=== PATIENT | female | born 1950 | race Caucasian/White ===

== ENCOUNTER 2019-10-26 17:06 | Inpatient (IN) | payer MEDICARE, OTHER ==
[~2019-10-26] VITALS: Ht 152.4 cm; Wt 48.6 kg
[2019-10-26] MEDS ORDERED: VALIUM5 MG PO (17:23)
[2019-10-26] MEDS ORDERED: ROBAXIN 750 MG750 MG PO (17:25)
[2019-10-26] MEDS ORDERED: TORADOL 10 MG T10 MG PO (17:25)
[2019-10-26] MEDS ORDERED: ROXICODONE5 M2 PO (17:26)
[2019-10-26] MEDS ORDERED: SENOKOT-S1 TA2 PO (17:28)
[2019-10-26] MEDS ORDERED: TYLENOL EXTRA500 MG PO (17:30)
[2019-10-26] MEDS ORDERED: FOSAMAX 70 MG T70 MG PO (17:33)
[2019-10-26] MEDS ORDERED: TYLENOL/CODEINE #3 PO (17:33)
[2019-10-26] MEDS ORDERED: AMITRIPTYLINE H25 M2 PO (17:34)
[2019-10-26] MEDS ORDERED: BACLOFEN20 MG PO (17:35)
[2019-10-26] MEDS ORDERED: [UNRECOGNIZED DRUG - OTHER] PO (17:37)
[2019-10-26] MEDS ORDERED: OSCAL PO (17:37)
[2019-10-26] MEDS ORDERED: CYANOCOBAL1000 MCG/1 IM (17:39)
[2019-10-26] MEDS ORDERED: NOLVADEX20 MG PO (17:40)
[2019-10-26] MEDS ORDERED: [UNRECOGNIZED DRUG - OTHER] PO (17:41)
[2019-10-26] MEDS ORDERED: HERBAL MEDS (17:42)
[2019-10-26] MEDS ORDERED: ONDANSETRON HCL4 M2 PO (18:08)
[2019-10-26 20:00] VITALS: BP 135/68
[2019-10-27 04:49] LABS: HEMATOCRIT 29.3 % (37.0-47.0); HEMOGLOBIN 10.3 gm/dL (12.0-15.0); MCH 33.3 pg (26.0-34.0); MCHC 34.9 g/dL (28.0-37.0); MCV 95.4 fL (80.0-100.0); MPV 7.2 fl. (7.2-11.1); RBC 3.07 mil/uL (4.20-5.00); RDW-CV 12.4 % (10.5-14.5)
[2019-10-27 05:07] LABS: CALCIUM 7.8 mg/dL (8.5-10.1); CREATININE 0.7 mg/dL (0.6-1.3); POTASSIUM 3.7 mmol/L (3.5-5.1)
[2019-10-27 07:00] VITALS: BP 136/59
[2019-10-27 20:00] VITALS: BP 139/69
[2019-10-28 07:56] VITALS: BP 133/69
[2019-10-28 20:22] VITALS: BP 132/69
[2019-10-29 08:00] VITALS: BP 112/61; BP 141/66
[2019-10-29 09:32] LABS: HEMATOCRIT 38.2 % (37.0-47.0); MCH 32.7 pg (26.0-34.0); MCHC 33.2 g/dL (28.0-37.0); MCV 98.5 fL (80.0-100.0); MPV 7.1 fl. (7.2-11.1); RBC 3.88 mil/uL (4.20-5.00); RDW-CV 12.7 % (10.5-14.5); WBC 5.6 thou/uL (4.0-11.0)
[2019-10-29 09:34] LABS: HEMOGLOBIN 12.7 gm/dL (12.0-15.0)
[2019-10-29 13:59] LABS: ALBUMIN 2.4 g/dL (3.4-5.0); CALCIUM 8.4 mg/dL (8.5-10.1); CREATININE 0.5 mg/dL (0.6-1.3); MAGNESIUM 1.8 mg/dL (1.8-2.4); POTASSIUM 4.3 mmol/L (3.5-5.1); TOTAL BILIRUBIN 0.2 mg/dL (<0.1-1.0); TOTAL PROTEIN 5.8 g/dL (6.4-8.2)
[2019-10-29 20:00] VITALS: BP 133/69
[2019-10-30 05:07] LABS: HEMATOCRIT 31.2 % (37.0-47.0); MCH 32.7 pg (26.0-34.0); MCHC 34.1 g/dL (28.0-37.0); MCV 96.1 fL (80.0-100.0); MPV 6.8 fl. (7.2-11.1); RBC 3.25 mil/uL (4.20-5.00); RDW-CV 12.7 % (10.5-14.5); WBC 4.8 thou/uL (4.0-11.0)
[2019-10-30 05:36] LABS: HEMOGLOBIN 10.6 gm/dL (12.0-15.0)
[2019-10-30 05:41] LABS: ALBUMIN 2.4 g/dL (3.4-5.0); CALCIUM 8.5 mg/dL (8.5-10.1); CREATININE 0.6 mg/dL (0.6-1.3); MAGNESIUM 1.8 mg/dL (1.8-2.4); POTASSIUM 4.2 mmol/L (3.5-5.1); TOTAL BILIRUBIN 0.3 mg/dL (<0.1-1.0); TOTAL PROTEIN 5.5 g/dL (6.4-8.2)
[2019-10-30 20:00] VITALS: BP 125/69
[2019-10-31 08:00] VITALS: BP 132/45
[2019-10-31 20:00] VITALS: BP 157/75
[2019-11-01 03:47] LABS: HEMATOCRIT 34.2 % (37.0-47.0); HEMOGLOBIN 11.7 gm/dL (12.0-15.0); MCH 33.2 pg (26.0-34.0); MCHC 34.3 g/dL (28.0-37.0); MCV 96.9 fL (80.0-100.0); MPV 6.6 fl. (7.2-11.1); RBC 3.53 mil/uL (4.20-5.00); RDW-CV 12.7 % (10.5-14.5); WBC 4.1 thou/uL (4.0-11.0)
[2019-11-01 04:17] LABS: ALBUMIN 2.6 g/dL (3.4-5.0); CALCIUM 8.4 mg/dL (8.5-10.1); CREATININE 0.8 mg/dL (0.6-1.3); MAGNESIUM 1.8 mg/dL (1.8-2.4); TOTAL BILIRUBIN 0.3 mg/dL (<0.1-1.0); TOTAL PROTEIN 5.7 g/dL (6.4-8.2)
[2019-11-01 08:00] VITALS: BP 126/63
[2019-11-01 20:00] VITALS: BP 141/69
[2019-11-02 08:00] VITALS: BP 118/57
[2019-11-02 12:59] VITALS: BP 141/69
[2019-11-02 13:01] VITALS: BP 141/69
[2019-11-02 13:08] VITALS: BP 141/69
[2019-11-02 13:14] VITALS: BP 141/69
[2019-11-02 13:16] VITALS: BP 141/69
== END 2019-11-02 14:00 | disposition home health service (06) | DRG 57 ==
LOC: M.REH 17:06
PROVIDERS: Family Medicine; ADMIT Physical Medicine & Rehabilitation; ATTEND Physical Medicine & Rehabilitation
DX: G81.94 Hemiplegia, unspecified affecting left nondominant side (principal); G35 Multiple sclerosis; G96.19 Other disorders of meninges, not elsewhere classified; D64.9 Anemia, unspecified; K21.9 Gastro-esophageal reflux disease without esophagitis; Z85.3 Personal history of malignant neoplasm of breast; G89.29 Other chronic pain; M54.5 Low back pain; Z90.49 Acquired absence of other specified parts of digestive tract; Z90.710 Acquired absence of both cervix and uterus; Z88.8 Allergy status to other drugs, medicaments and biological substances